=== PATIENT | male | born 1985 ===

== ENCOUNTER 2016-10-03 06:35 | Emergency (ER) | payer OTHER ==
[2016-10-03 07:13] LABS: BASOPHILS % (AUTO) 1 % (0-3); EOSINOPHILS % (AUTO) 3 % (0-9); HEMATOCRIT 37 % (39-53); MEAN CORPUSCULAR HGB CONC 36.5 gm/dl (32.0-36.0); MEAN CORPUSCULAR VOLUME 86 fL (80-100); MONOCYTES % (AUTO) 8.1 % (0-12); NEUTROPHILS % (AUTO) 60.2 % (37-80)
[2016-10-03 07:16] VITALS: RESP 18; TEMP 98.4; O2SAT 98
[2016-10-03 07:16] LABS: ALBUMIN 2.3 gm/dl (3.4-5.0); POTASSIUM 3.4 mMol/L (3.5-5.1)
[2016-10-03 07:27] LABS: APPEARANCE,URINE Clear; BILIRUBIN,URINE NEGATIVE (NEGATIVE); COLOR,URINE Yellow; GLUCOSE, URINE (UA) NEGATIVE (NEGATIVE); KETONES,URINE NEGATIVE (NEGATIVE); LEUKOCYTE ESTERASE ,URINE NEGATIVE (NEGATIVE); NITRATE,URINE NEGATIVE (NEGATIVE); OCCULT BLOOD,URINE 1+ (NEG-TRACE); UROBILINOGEN,URINE 0.2 (0.2-1.0 EU)
[2016-10-03 07:33] LABS: HEMOGLOBIN A1C 10.7 % (4.8-6.0)
[2016-10-03 07:43] VITALS: BP 159/103; PULSE 81
[2016-10-03 07:43] LABS: RBC,URINE 0-3 (0-3AV/HPF); WBC,URINE 0-3 (0-5AV/HPF)
== END 2016-10-03 08:33 | disposition home or self-care (01) ==
LOC: ED 06:35
DX: E10.649 Type 1 diabetes mellitus with hypoglycemia without coma (principal); Z79.4 Long term (current) use of insulin
CPT/HCPCS: 36415; 80053; 81001; 82962; 83036; 85025; 99283; 99284

== ENCOUNTER 2017-01-19 19:49 | Emergency (ER) | payer OTHER ==
[2017-01-19 20:11] VITALS: RESP 18; TEMP 98.4
[2017-01-19] MEDS ORDERED: SODIUM CHLORIDE 0.9% 1000 ML SOL IV SCH (20:15)
[2017-01-19 20:20] LABS: BASOPHILS % (AUTO) 1 % (0-3); EOSINOPHILS % (AUTO) 2 % (0-9); HEMATOCRIT 38 % (39-53); MEAN CORPUSCULAR HGB CONC 35.5 gm/dl (32.0-36.0); MEAN CORPUSCULAR VOLUME 87 fL (80-100); MONOCYTES % (AUTO) 8.1 % (0-12)
[2017-01-19 20:28] LABS: POTASSIUM 4.7 mMol/L (3.5-5.1)
[2017-01-19 22:56] VITALS: BP 109/68; PULSE 65; O2SAT 100
== END 2017-01-19 21:42 | disposition home or self-care (01) ==
LOC: ED 19:49
DX: E86.0 Dehydration (principal); K52.9 Noninfective gastroenteritis and colitis, unspecified
CPT/HCPCS: 80048; 85025; 99283